=== PATIENT | female | born 1935 | race Caucasian/White ===

== ENCOUNTER 2017-02-12 13:38 | Emergency (ER) | payer MEDICARE, OTHER ==
[~2017-02-12 13:38] MED LIST: AMLO10TA2 PO; DIOV160T6 PO; LEVO125T4 PO; LORA-373 PO; OCUSPAD; SYSTSOL9 EACH EYE
[2017-02-12 13:40] VITALS: BP 122/62; PULSE 87; RESP 20; TEMP 99; O2SAT 97
--- NOTE | 2017-02-12 13:43 | PD ---
Physical Exam Time Seen by Provider: 13:43 Narrative 81 y/o female sent by Dr. Garduno for psychiatric evaluation. Feels depressed, anxious, decreased appetite. Occasional thoughts of self-harm. Vital signs reviewed. Seen at triage desk. Awaiting bed placement. Data Data Last Documented VS Vital Signs Date Time Temp Pulse Resp B/P Pulse Ox O2 Delivery O2 Flow Rate FiO2 02/12/17 13:40 99.0 87 20 122/62 97 Room Air [facility] Medical Record Reviewed: Yes Supervised Visit with CHICA: No Niko Curran February 12, 2017 13:43
--- NOTE | 2017-02-12 14:05 | PD ---
HPI Chief Complaint: Psychiatric Symptoms Time Seen by Provider: 13:53 Travel History International Travel<30 days: No Contact w/Intl Traveler<30days: No Traveled to known affect area: No History of Present Illness HPI The patient is a 81-year-old female who presents to the emergency department from her physician's office, Dr. Garduno, for psychiatric evaluation. The patient states her 10 months ago in she's had increasing depression and anxiety. The patient states she is having difficulty sleeping, was prescribed mirtazapine. The patient also states she's had decreased appetite, has lost approximately 10 pounds of the last 10 months. The patient notes a decrease in pleasure with simple tasks such as going to the beach, has anhedonia. The patient also has thoughts of suicide, does not have an actual suicide plan. The patient does have a history of a "nervous breakdown" when she was 25 in [place] and was hospitalized for 5 days. The patient denies any hallucinations or delusions. The patient denies any chest pain, shortness of breath, nausea, vomiting, or abdominal pain. PFSH Past Medical History Narrative Medical Hypothyroidism, hypertension, "nervous breakdown", insomnia, anxiety Past Surgical History Narrative Surgical Noncontributory Social History Tobacco Use: No Allergies-Medications (Allergen,Severity, Reaction): Coded Allergies: Clindamycin (Verified Allergy, Severe, Rash, 11/06/16) Amantadine (Verified Allergy, Mild, 11/06/16) Cephalosporins (Verified Allergy, Mild, 11/06/16) Penicillin (Verified Allergy, Mild, 11/06/16) Symmetrel (Verified Allergy, Mild, 11/06/16) Reported Meds & Prescriptions Reported Meds & Active Scripts Active Reported Systane Ultra Opth (Polyethylene Glycol-Propylene Opth) 0.4-0.3% Soln 1 Drop EACH EYE PRN Ocusoft Lid Scrub (Eyelid Cleansers) 1 Pad Pad 1 Pad RUB ALONG LASH LINE PRN Levothyroxine (Levothyroxine Sodium) 125 Mcg Tab 125 Mcg PO DAILY Lorazepam 0.5 Mg Tab 0.5 Mg PO DAILY PRN Diovan (Valsartan) 160 Mg Tab 160 Mg PO DAILY Amlodipine (Amlodipine Besylate) 10 Mg Tab 10 Mg PO DAILY Review of Systems Except as stated in HPI: all other systems reviewed are Neg General / Constitutional: No: Fever Cardiovascular: No: Chest Pain or Discomfort Respiratory: No: Shortness of Breath Gastrointestinal: No: Nausea, Vomiting, Abdominal Pain Psychiatric: Positive: Anxiety, Depression, Suicidal Ideations, No: Substance Abuse, Homicidal Ideation Physical Exam Narrative GENERAL: Awake, alert, 81-year-old female who appears her stated age and is in no acute respiratory distress. SKIN: Focused skin assessment warm/dry. HEAD: Atraumatic. Normocephalic. EYES: Pupils equal and round. No scleral icterus. No injection or drainage. ENT: No nasal bleeding or discharge. Mucous membranes pink and moist. NECK: Trachea midline. No JVD. CARDIOVASCULAR: Regular rate and rhythm. Holosystolic murmur. RESPIRATORY: No accessory muscle use. Clear to auscultation. Breath sounds equal bilaterally. GASTROINTESTINAL: Abdomen soft, non-tender, nondistended. No rebound tenderness. MUSCULOSKELETAL: No obvious deformities. No clubbing. No cyanosis. No edema. NEUROLOGICAL: Awake and alert. No obvious cranial nerve deficits. Motor grossly within normal limits. Normal speech. Nonfocal. PSYCHIATRIC: Flat affect. Data Data Last Documented VS Vital Signs Date Time Temp Pulse Resp B/P Pulse Ox O2 Delivery O2 Flow Rate FiO2 02/12/17 13:40 99.0 87 20 122/62 97 Room Air Orders Complete Blood Count With Diff (02/12/17 13:58) Comprehensive Metabolic Panel (02/12/17 13:58) Thyroid Stimulating Hormone (02/12/17 13:58) Urinalysis - C+S If Indicated (02/12/17 13:58) Psych Screen (02/12/17 13:58) Drug Screen, Random Urine (02/12/17 13:58) Labs Laboratory Tests Test 02/12/17 14:10 White Blood Count 6.2 TH/MM3 Red Blood Count 4.49 MIL/MM3 Hemoglobin 13.4 GM/DL Hematocrit 38.7 % Mean Corpuscular Volume 86.3 FL Mean Corpuscular Hemoglobin 30.0 PG Mean Corpuscular Hemoglobin 34.7 % Concent Red Cell Distribution Width 13.3 % Platelet Count 293 TH/MM3 Mean Platelet Volume 8.0 FL Neutrophils (%) (Auto) 59.6 % Lymphocytes (%) (Auto) 20.5 % Monocytes (%) (Auto) 16.6 % Eosinophils (%) (Auto) 2.0 % Basophils (%) (Auto) 1.3 % Neutrophils # (Auto) 3.7 TH/MM3 Lymphocytes # (Auto) 1.3 TH/MM3 Monocytes # (Auto) 1.0 TH/MM3 Eosinophils # (Auto) 0.1 TH/MM3 Basophils # (Auto) 0.1 TH/MM3 CBC Comment DIFF FINAL Differential Comment Urine Color YELLOW Urine Turbidity CLEAR Urine pH 6.5 Urine Specific [place] 1.017 Urine Protein 30 mg/dL Urine Glucose (UA) NEG mg/dL Urine Ketones NEG mg/dL Urine Occult Blood TRACE Urine Nitrite NEG Urine Bilirubin NEG Urine Urobilinogen LESS THAN 2.0 MG/DL Urine Leukocyte Esterase TRACE Urine RBC 2 /hpf Urine WBC 2 /hpf Urine Squamous Epithelial <1 /hpf Cells Urine Hyaline Casts 4 /lpf Urine Mucus FEW /lpf Microscopic Urinalysis Comment CULT NOT INDICATED Sodium Level 141 MEQ/L Potassium Level 3.3 MEQ/L Chloride Level 103 MEQ/L Carbon Dioxide Level 29.2 MEQ/L Anion Gap 9 MEQ/L Blood Urea Nitrogen 24 MG/DL Creatinine 0.90 MG/DL Estimat Glomerular Filtration 60 ML/MIN Rate Random Glucose 147 MG/DL Calcium Level 8.5 MG/DL Total Bilirubin 0.6 MG/DL Aspartate Amino Transf 15 U/L (AST/SGOT) Alanine Aminotransferase 18 U/L (ALT/SGPT) Alkaline Phosphatase 99 U/L Total Protein 7.4 GM/DL Albumin 3.3 GM/DL Thyroid Stimulating Hormone 2.610 uIU/ML 3rd Gen Urine Opiates Screen NEG Urine Barbiturates Screen NEG Urine Amphetamines Screen NEG Urine Benzodiazepines Screen NEG Urine Cocaine Screen NEG Urine Cannabinoids Screen NEG [facility] Medical Decision Making Medical Screen Exam Complete: Yes Emergency Medical Condition: Yes Medical Record Reviewed: Yes Interpretation(s) Laboratory Tests Test 02/12/17 14:10 White Blood Count 6.2 TH/MM3 Red Blood Count 4.49 MIL/MM3 Hemoglobin 13.4 GM/DL Hematocrit 38.7 % Mean Corpuscular Volume 86.3 FL Mean Corpuscular Hemoglobin 30.0 PG Mean Corpuscular Hemoglobin 34.7 % Concent Red Cell Distribution Width 13.3 % Platelet Count 293 TH/MM3 Mean Platelet Volume 8.0 FL Neutrophils (%) (Auto) 59.6 % Lymphocytes (%) (Auto) 20.5 % Monocytes (%) (Auto) 16.6 % Eosinophils (%) (Auto) 2.0 % Basophils (%) (Auto) 1.3 % Neutrophils # (Auto) 3.7 TH/MM3 Lymphocytes # (Auto) 1.3 TH/MM3 Monocytes # (Auto) 1.0 TH/MM3 Eosinophils # (Auto) 0.1 TH/MM3 Basophils # (Auto) 0.1 TH/MM3 CBC Comment DIFF FINAL Differential Comment Urine Color YELLOW Urine Turbidity CLEAR Urine pH 6.5 Urine Specific [place] 1.017 Urine Protein 30 mg/dL Urine Glucose (UA) NEG mg/dL Urine Ketones NEG mg/dL Urine Occult Blood TRACE Urine Nitrite NEG Urine Bilirubin NEG Urine Urobilinogen LESS THAN 2.0 MG/DL Urine Leukocyte Esterase TRACE Urine RBC 2 /hpf Urine WBC 2 /hpf Urine Squamous Epithelial <1 /hpf Cells Urine Hyaline Casts 4 /lpf Urine Mucus FEW /lpf Microscopic Urinalysis Comment CULT NOT INDICATED Sodium Level 141 MEQ/L Potassium Level 3.3 MEQ/L Chloride Level 103 MEQ/L Carbon Dioxide Level 29.2 MEQ/L Anion Gap 9 MEQ/L Blood Urea Nitrogen 24 MG/DL Creatinine 0.90 MG/DL Estimat Glomerular Filtration 60 ML/MIN Rate Random Glucose 147 MG/DL Calcium Level 8.5 MG/DL Total Bilirubin 0.6 MG/DL Aspartate Amino Transf 15 U/L (AST/SGOT) Alanine Aminotransferase 18 U/L (ALT/SGPT) Alkaline Phosphatase 99 U/L Total Protein 7.4 GM/DL Albumin 3.3 GM/DL Thyroid Stimulating Hormone 2.610 uIU/ML 3rd Gen Urine Opiates Screen NEG Urine Barbiturates Screen NEG Urine Amphetamines Screen NEG Urine Benzodiazepines Screen NEG Urine Cocaine Screen NEG Urine Cannabinoids Screen NEG Differential Diagnosis Differential diagnoses includes adjustment reaction, depressive disorder NOS, major depression, mood disorder NOS, stress reaction. Narrative Course Labs were drawn and sent. Psychiatric evaluation was ordered. Labs are unremarkable. Patient is medically clear to be evaluated by psychiatry. Disposition as per psych. Diagnosis Primary Impression: Depressive disorder Additional Impression: Suicidal ideation Condition: Stable Alton Diaz MD February 12, 2017 14:05
[2017-02-12 14:29] LABS: AUTOMATED NEUTROPHIL # 3.7 TH/MM3 (1.8-7.7); BASOPHIL # 0.1 TH/MM3 (0-0.2); BASOPHIL % 1.3 % (0.0-2.0); EOSINOPHIL # 0.1 TH/MM3 (0-0.4); HEMATOCRIT 38.7 % (35.0-46.0); HEMO FLAGS DIFF FINAL; LYMPH % 20.5 % (9.0-44.0); LYMPHOCYTE # 1.3 TH/MM3 (1.0-4.8); MEAN CELL VOLUME 86.3 FL (80.0-100.0); MEAN CORPUSCULAR HGB CONC 34.7 % (32.0-36.0); MONO % 16.6 % (0.0-8.0); NEUT % 59.6 % (16.0-70.0); PLATELET COUNT 293 TH/MM3 (150-450); RED BLOOD COUNT 4.49 MIL/MM3 (4.00-5.30); RED CELL DISTRIBUTION WIDTH 13.3 % (11.6-17.2); WHITE BLOOD COUNT 6.2 TH/MM3 (4.0-11.0)
[2017-02-12 14:32] LABS: BLOOD, URINE TRACE (NEG); COMMENT (UR) CULT NOT INDICATED; CULTURE IF INDICATED CULT NOT INDICATED; GLUCOSE,URINE NEG (NEG); HYALINE CAST, URINE 4 /lpf (RARE); KETONE, URINE NEG (NEG); MUCUS URINE FEW /lpf (OCC); NITRITE,URINE NEG (NEG); PH, URINE 6.5 (5.0-8.5); SQUAMOUS EPITHELIAL CELL URINE <1 /hpf (0-5); URINE COLOR YELLOW (YELLW/STRAW)
[2017-02-12 14:37] LABS: AMPHETAMINE, URINE NEG (NEG); BARBITURATES, URINE NEG (NEG); COCAINE, URINE NEG (NEG)
[2017-02-12 14:47] LABS: ANION GAP 9 MEQ/L (5-15); AST (GOT) 15 U/L (15-37); BICARBONATE 29.2 MEQ/L (21.0-32.0); BLOOD UREA NITROGEN 24 MG/DL (7-18); CHLORIDE 103 MEQ/L (98-107); GLOMERULAR FILTRATION RATE 60 ML/MIN (>89); POTASSIUM 3.3 MEQ/L (3.5-5.1); SODIUM (NA) 141 MEQ/L (136-145)
[2017-02-12 14:57] LABS: ALKALINE PHOSPHATASE 99 U/L (45-117); ALT (GPT) 18 U/L (10-53); TOTAL BILIRUBIN ADULT 0.6 MG/DL (0.2-1.0)
[2017-02-12] MEDS ORDERED: LEVO100T5 PO (17:01)
[2017-02-12] MEDS ORDERED: AMLO5TAB2 PO (17:01)
[2017-02-12] MEDS ORDERED: MIRTA15 PO (17:01)
[2017-02-12 17:20] VITALS: BP 209/98; PULSE 85; RESP 18; TEMP 98.1; O2SAT 96
[2017-02-12 22:20] VITALS: BP 176/80; PULSE 79; RESP 18; O2SAT 98
[2017-02-13 01:51] VITALS: BP 153/80; PULSE 82; RESP 18; O2SAT 95
[2017-02-13 06:26] VITALS: BP 178/82; PULSE 71; RESP 19; O2SAT 97
[2017-02-13] MEDS ORDERED: amLODIPine BESYLATE 5 MG TAB PO ONE (06:45)
== END 2017-02-13 10:00 | disposition home or self-care (01) ==
LOC: NEPE 13:38 → NEPJ 02-13 10:00
DX: F32.9 Major depressive disorder, single episode, unspecified (principal); F41.9 Anxiety disorder, unspecified; Z79.899 Other long term (current) drug therapy
CPT/HCPCS: 80053; 80307; 81001; 84443; 85025; 99284